=== PATIENT | female | born 1990 | race Native Hawaiian/Other Pacific Islander ===

== ENCOUNTER → 2018-03-17 | Outpatient (CLI) | payer OTHER | LOC: M RAD 14:56 | DX: O02.1 Missed abortion (principal) | CPT/HCPCS: 76811 ==

== ENCOUNTER 2018-03-19 03:41 | Emergency (ER) | payer OTHER ==
[2018-03-19] MEDS ORDERED: ceFAZolin 2 GM/D5W 50 ML IV BAG (J0690 PER 500MG) As Ordered (12:32)
== END 2018-03-19 05:47 | disposition home or self-care (01) ==
LOC: M ED 03:41
DX: O03.4 Incomplete spontaneous abortion without complication (principal)
CPT/HCPCS: 76856

== ENCOUNTER 2018-03-19 09:07 | Day surgery (SDC) | payer OTHER ==
[2018-03-19] MEDS: NS 1,000 ML IV (09:30)
[2018-03-19 10:07] LABS: HEMATOCRIT 30.8 % (36.0-47.0); HEMOGLOBIN 10.5 g/dl (12.0-15.5); MEAN CORPUSCULAR HEMOGLOBIN 31.7 pg (27.0-33.0); MEAN CORPUSCULAR HGB CONC 34.1 g/dl (32.0-36.5); MEAN CORPUSCULAR VOLUME 93.1 fl (80.0-96.0); PLATELET COUNT, AUTOMATED 280 10^3/uL (150-450); RED BLOOD COUNT 3.31 10^6/uL (4.00-5.40); RED CELL DISTRIBUTION WIDTH 12.1 % (11.5-14.5); WHITE BLOOD COUNT 10.3 10^3/uL (4.0-10.0)
[2018-03-19 10:31] LABS: HCG, SERUM QUANTITATIVE 1463 MIU/ML
[2018-03-19] MEDS: IBUPROFEN 600 MG TAB PO (12:00)
[2018-03-19] MEDS: OXYTOCIN INJ 10 UNITS/ML VIAL (J2590) IV (12:14)
[2018-03-19] MEDS: ACETAMINOPHEN 650 MG SUPP As Ordered (13:00)
[2018-03-19] MEDS ORDERED: MIDAZOLAM INJ 2 MG/2 ML VIAL (J2250) As Ordered (13:01)
[2018-03-19] MEDS ORDERED: PROPOFOL 200 MG/20 ML VIAL As Ordered (13:01)
[2018-03-19] MEDS ORDERED: fentaNYL 100 MCG/2 ML INJECTION (J3010) As Ordered (13:01)
[2018-03-19] MEDS ORDERED: OXYTOCIN INJ 10 UNITS/ML VIAL (J2590) As Ordered (13:01)
[2018-03-19] MEDS ORDERED: LIDOCAINE 2% INJ 100 MG/5 ML SDV (FOR ANES.) As Ordered (13:01)
[2018-03-19] MEDS ORDERED: dexameTHASONE 4 MG/ML 1ML VIAL (J1100) As Ordered (13:02)
[2018-03-19] MEDS ORDERED: SUCCINYLCHOLINE 100 MG/5 ML SYRINGE (J0330) As Ordered (13:02)
[2018-03-19] MEDS ORDERED: ONDANSETRON 4MG/2ML VIAL (J2405) As Ordered (13:08)
[2018-03-19] MEDS ORDERED: PHENYLephrine HCL 500 MCG/5 ML (100MCG/ML) SYRINGE (J2370) As Ordered ×2 (13:08→13:10)
[2018-03-19] MEDS: LACTATED RINGER'S 1000 ML IV (13:40)
[2018-03-19] MEDS ORDERED: fentaNYL 100 MCG/2 ML INJECTION (J3010) IV (14:00)
[2018-03-19] MEDS ORDERED: ONDANSETRON 4MG/2ML VIAL (J2405) IV (14:00)
[2018-03-19] MEDS ORDERED: PERCOCET 5MG/325MG TAB PO (14:00)
[2018-03-19] MEDS ORDERED: HYDROMORPHONE HCL 0.5 MG/ 0.5 ML SYRINGE (J1170 PER 1) IV (14:00)
[2018-03-19] MEDS: ceFAZolin 2 GM/D5W 50 ML IV BAG (J0690 PER 500MG) As Ordered (14:47)
== END 2018-03-19 15:45 | disposition home or self-care (01) ==
LOC: M SDC 15:45 → M ED 09:07 → M SDC 12:15
DX: O73.1 Retained portions of placenta and membranes, without hemorrhage (principal); O02.1 Missed abortion
CPT/HCPCS: 59820

== ENCOUNTER 2018-06-17 19:49 | Emergency (ER) | payer OTHER ==
[2018-06-17 20:13] LABS: BASO # 0.1 10^3/uL (0.0-0.2); BASO % 0.6 % (0.0-1.0); EOS # 0.2 10^3/uL (0.0-0.50); EOS % 2.5 % (0.0-3.0); HEMATOCRIT 37.6 % (36.0-47.0); HEMOGLOBIN 11.8 g/dl (12.0-15.5); IMMATURE GRANULOCYTE % 0.3 % (0-3.0); LYMPH # 2.2 10^3/uL (1.5-6.5); LYMPH % 25.8 % (24.0-44.0); MEAN CORPUSCULAR HGB CONC 31.4 g/dl (32.0-36.5); MONO # 0.6 10^3/uL (0.0-0.8); MONO % 7.4 % (0.0-5.0); NEUTROPHILS # 5.5 10^3/uL (1.8-7.7); NEUTROPHILS % 63.4 % (36.0-66.0); PLATELET COUNT, AUTOMATED 391 10^3/uL (150-450); RED BLOOD COUNT 4.53 10^6/uL (4.00-5.40); RED CELL DISTRIBUTION WIDTH 15.4 % (11.5-14.5); WHITE BLOOD COUNT 8.7 10^3/uL (4.0-10.0)
[2018-06-17] MEDS: NS 1,000 ML IV (20:26)
[2018-06-17] MEDS: CHARCOAL ACTIVATED LIQUID 25 GM/120 ML BTL PO (20:27)
[2018-06-17 20:44] LABS: AMPHETAMINES LEVEL URINE NEGATIVE (NEGATIVE); BARBITURATES URINE NEGATIVE (NEGATIVE); BENZODIAZEPINES URINE NEGATIVE (NEGATIVE); CANNABINOIDS URINE NEGATIVE (NEGATIVE); COCAINE METABOLITE URINE NEGATIVE (NEGATIVE); METHADONE URINE NEGATIVE (NEGATIVE); OPIATES URINE NEGATIVE (NEGATIVE); PHENCYCLIDINE URINE NEGATIVE (NEGATIVE)
[2018-06-17 20:51] LABS: ACETAMINOPHEN LEVEL < 2.0 UG/ML (10.0-30.0); ALBUMIN 4.2 GM/DL (3.2-5.2); ALKALINE PHOSPHATASE 88 U/L (45-117); ALT/SGPT 14 U/L (12-78); ANION GAP 6 MEQ/L (8-16); AST/SGOT 13 U/L (7-37); BILIRUBIN,DIRECT < 0.1 MG/DL (0.0-0.2); BILIRUBIN,TOTAL 0.3 MG/DL (0.2-1.0); BLOOD UREA NITROGEN 11 MG/DL (7-18); CALCIUM LEVEL 9.1 MG/DL (8.5-10.1); CARBON DIOXIDE LEVEL 26 MEQ/L (21-32); CHLORIDE LEVEL 104 MEQ/L (98-107); CPK CREATINE PHOSPHOKINASE 110 U/L (26-192); CREATININE FOR GFR 0.77 MG/DL (0.55-1.30); ETHYL ALCOHOL (ETHANOL) < 0.003 % (0.000-0.010); GLOMERULAR FILTRATION RATE > 60.0 (>60); GLUCOSE, FASTING 93 MG/DL (70-100); SALICYLATE LEVEL < 1.7 MG/DL (5.0-30.0); SODIUM LEVEL 136 MEQ/L (136-145); TOTAL PROTEIN 7.7 GM/DL (6.4-8.2)
[2018-06-17 20:52] LABS: CONTROL LINE HCG INT CTR LINE PRESENT; HCG, SERUM QUALITATIVE NEGATIVE (NEGATIVE)
== END 2018-06-18 04:29 | disposition short-term general hospital (02) ==
LOC: M ED 06-18 04:29
DX: F32.9 Major depressive disorder, single episode, unspecified (principal); T43.202A Poisoning by unspecified antidepressants, intentional self-harm, initial encounter; R00.1 Bradycardia, unspecified; Z91.5 Personal history of self-harm
CPT/HCPCS: 93005